=== PATIENT | male | born 2000 | race Caucasian/White ===

== ENCOUNTER 2022-08-10 14:02 | Emergency (ER) | payer OTHER ==
[2022-08-10] MEDS ORDERED: Fluorescein Opthalmic Strip ONE (14:29)
[2022-08-10] MEDS ORDERED: Tetracaine 0.5% PF 4 ML BOT ONE (14:29)
[2022-08-10] MEDS ORDERED: Boostrix 0.5 ML (Tdap) VIAL (>/=7 yrs of age) ONE (14:37)
[2022-08-10] MEDS ORDERED: Rabies Vaccine Human 2.5 UNITS VIAL ONE (14:37)
[2022-08-10] MEDS ORDERED: Amoxicillin/Potassium Clav 875 MG TAB ONE (15:12)
[2022-08-10] MEDS ORDERED: HYDROcodone/Acetaminophen 5/325 mg Tablet ONE (15:12)
== END 2022-08-10 15:52 | disposition short-term general hospital (02) ==
LOC: CSHERS 14:02
DX: S01.25XA Open bite of nose, initial encounter (principal); S01.112A Laceration without foreign body of left eyelid and periocular area, initial encounter; W54.0XXA Bitten by dog, initial encounter
CPT/HCPCS: 90375; 90471; 90675; 90715; 99284